=== PATIENT | female | born 1990 | race Caucasian/White ===

== ENCOUNTER 2021-04-28 00:54 | Inpatient (IN) ==
[2021-04-28 02:31] LABS: Urine Benzodiazepine Screen None Detected (None Detect); Urine Cannabinoids Screen None Detected (None Detect); Urine Opiates Screen None Detected (None Detect)
[2021-04-28] MEDS ORDERED: Witch Hazel PAD JAR TOPICAL PRN (02:43)
[2021-04-28] MEDS ORDERED: Glycerin ADULT 2.4 gm SUPP PR PRN (02:43)
[2021-04-28] MEDS ORDERED: Buffered Lidocaine 1% SYRIN 1 ml INTRADERM ONE (02:43)
[2021-04-28] MEDS ORDERED: Dibucaine 1% OINT 28.35 GM TUBE PR PRN (02:43)
[2021-04-28] MEDS ORDERED: Lactated Ringers 1000 ml BAG 1,000 ML IV ONE (02:43)
[2021-04-28] MEDS ORDERED: Lactated Ringers 1000 ml BAG 1,000 ML IV SCH ×2 (03:00)
[2021-04-29 07:50] VITALS: BP 114/68
[2021-04-29 08:48] LABS: ABS Eosinophils 0.2 10^3/ul (0-0.6); ABS Lymphocytes 1.7 10^3/ul (1.0-4.8); ABS Monocytes 0.4 10^3/ul (0-0.8); ABS Neutrophils 5.5 10^3/ul (1.5-7.7); Eosinophil % 2.1 %; Hematocrit 41 % (35-47); Lymphocyte % 21.9 %; Mean Corpuscular HGB Conc 34 g/dL (31-36); Mean Corpuscular Hemoglobin 31 pg (27-31); Mean Corpuscular Volume 91 fL (80-97); Nucleated Red Blood Cells % 0.1; Platelet Count 145 10^3/uL (150-450); Red Cell Distribution Width 14 % (10-15); White Blood Count 7.8 10^3/uL (3.5-10.8)
== END 2021-04-29 10:30 | disposition home or self-care (01) | DRG 560 ==
LOC: MCHOBOUT 00:54 → MCHOB 01:36
PROVIDERS: ADMIT Midwife; ATTEND Midwife